=== PATIENT | female | born 1975 | race Caucasian/White ===

== ENCOUNTER 2016-11-13 23:07 | Observation (INO) ==
--- NOTE | 2016-11-13 23:29 | Emergency Department Note ---
START Narrative - START START: I examined this patient and my medical decision-making was reviewed with the SURVEY RESEARCH TEACHER/PA/Advanced Practice Nurse/Resident Physician. I agree with the documented findings, disposition and treatment plan as described except to the extent set forth below. ED attending note: Patient seen with emergency medicine resident . Please see a copy of his note for details of the H&P, evaluation, management and disposition of this patient. We independently had [id number] contact with the patient Briefly: A 41-year-old female presents in wheelchair comfortably by family members very tearful. Patient is apparently having a grief reaction after finding out that her had been "cheating with her best friend". She had several episodes of "passing out" for crying so much. History of type 2 diabetes but no prior mental health problems. No voiced concerns or expressions of SI or HI. Patient will undergo medical clearance we will get parenteral benzodiazepines observation. Possibly mental health consultation. Disposition pending
--- NOTE | 2016-11-13 23:36 | Emergency Department Note ---
Disposition Clinical Impression: Acute anxiety, Grief reaction Disposition: Admitted As Inpatient Condition: Good Referrals: NO,PCP [Primary Care Provider] - Forms: ED Satisfaction Letter Time of Disposition: 02:15 Psych HPI - General Chief Complaint: ED Psychiatric Symptoms Stated Complaint: psych Time Seen by Provider: 11/13/16 23:23 Source: patient, family Mode of arrival: wheelchair Limitations: other (Anxiety) Nursing Notes Reviewed: Yes Vital Signs Reviewed: Yes - History of Present Illness HPI Narrative: Patient presents to the ED with an apparent acute grief reaction. Patient arrived to the ED and was brought back via wheelchair. Patient was sobbing and in apparent distress. Patient had 3 family members with her. They state that the patient just found out that her has been cheating on her. She has been having "an anxiety attack." All day. States that she has been hyperventilating and has passed out from this earlier today. They deny any suicidal or homicidal ideation. There is no previous history of bipolar disorder, schizophrenia or depression. She does have a history of anxiety, but is not on any medication daily. They present now because just prior to arrival. The patient found out that the person her was cheating on her. 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 They also state that she has a daughter that has cerebral palsy and is difficult for her to take care of. She also has a son that is deployed and she is concerned for him area. She has not had any auditory or visual hallucinations, although she has been repeating a recent phone conversation with her son. Family states that she looks like she is broken. They report that she has a history of diabetes and takes pills for this. - Related Data Home Medications Medication Instructions Recorded Confirmed Canagliflozin [Invokana] 300 mg PO DAILY 04/05/15 04/05/15 Duloxetine [Cymbalta] 30 mg PO HS 04/05/15 04/05/15 Estradiol [Vivelle-Dot] 1 each TD 2XW 04/05/15 04/05/15 Estrogens, Conjugated [Premarin 0.5 mg VG 2XW 04/05/15 04/05/15 Cream] Naproxen Sodium [Naproxen Sodium 220 mg PO DAILY PRN 04/05/15 04/05/15 Cr] Oxybutynin [Ditropan] 10 mg PO HS 04/05/15 04/05/15 SitaGLIPtin [Januvia] 100 mg PO HS 04/05/15 04/05/15 Previous Rx's Medication Instructions Recorded OxyCODONE Immed Rel [Roxicodone 5 5 - 10 mg PO Q6HR PRN #40 tablet 04/03/15 MG] Allergies Allergy/AdvReac Type Severity Reaction Status Date / Time metformin [From Glucophage] AdvReac Vomiting Verified 04/06/15 06:56 Constitutional: Denies: fever Cardiovascular: Denies: chest pain Gastrointestinal: Denies: abdominal pain, vomiting Psychiatric: Reports: anxiety Past Medical History - Past Medical History Attestation: Yes The following information was validated with the patient. Source: old records reviewed Medical history: Reports: diabetes Psychiatric history: Reports: anxiety, depression - Social History Smoking Status: Never smoker Smokeless Tobacco Status: No Alcohol use: Reports: none Drug use: Reports: none Physical Exam - General Limitations: no limitations General appearance: alert, anxious (Tearful, sobbing, inconsolable) - Head Head exam: atraumatic, normocephalic, normal inspection - Eye Eye exam: Present: normal appearance, PERRL - ENT ENT exam: normal exam, normal oropharynx, mucous membranes moist - Neck Neck exam: Present: normal inspection, full ROM, trachea midline - Chest Chest inspection: Present: normal inspection, symmetric chest wall rise - Respiratory Respiratory exam: Present: normal lung sounds bilaterally, respiratory distress (From hyperventilation) - Cardiovascular Cardiovascular exam: Present: tachycardia - Abdominal Exam Abdominal exam: Present: soft, Non-Tender - Extremities Exam Extremities exam: Present: normal inspection, full ROM. Absent: pedal edema - Neurological Exam Neurological exam: Present: alert, oriented X3 - Psychiatric Psychiatric exam: Present: anxious - Skin Skin exam: Present: warm, dry, intact, normal color Course - Reevaluation(s) Reevaluation #1: Patient reevaluated. She is much more calm now. Her respiratory rate has slowed to a normal rate. She is able to communicate with nursing staff. Workup is initiated. We will give benzos as needed. Time: 23:47 Reevaluation #2: Patient medically cleared for psychiatric evaluation. Patient was requesting STD screening. However, is not having any dysuria, vaginal discharge or abdominal pain. After discussion with patient and the family. She was more amenable to following up with her GLAZE SUPERVISOR, Dr. Márquez for this testing as an outpatient. We did feel that psychiatric evaluation would be warranted since the patient does not feel like she can go home due to her house being a major trigger for her. Family would like this as well. She still denies any suicidal ideation but states that she really needs to get some things worked out. Time: 00:29 Reevaluation #3: Patient to be admitted to the psychiatry service for observation. Time: 02:14 Vital Signs Temperature 98.1 F 11/13/16 23:11 Pulse Rate 97 11/13/16 23:11 Respiratory Rate 18 11/13/16 23:11 Blood Pressure 146/102 11/13/16 23:11 O2 Sat by Pulse Oximetry 96 11/13/16 23:11 Temperature 98.1 F 11/13/16 23:11 Pulse Rate 97 11/13/16 23:11 Respiratory Rate 18 11/13/16 23:11 Blood Pressure 146/102 11/13/16 23:11 O2 Sat by Pulse Oximetry 96 11/13/16 23:11 Oxygen Delivery Oxygen Delivery Room Air Psych - Lab Data Result diagrams: 11/13/16 23:31 11/13/16 23:31 Lab Results 11/13/16 11/13/16 11/13/16 Range/Units 23:31 23:31 23:31 WBC 8.5 (4.3-11.1) K/mcL RBC 5.45 H (3.82-4.97) M/mcL Hgb 15.8 H (11.5-15.4) g/dL Hct 44.3 (35.3-44.9) % MCV 81.3 L (83.0-100.0) fL MCH 29.0 (28.0-33.3) pg MCHC 35.7 H (31.6-35.5) g/dL RDW 12.1 (11.5-14.5) % Plt Count 264 (140-400) K/mcL MPV 10.3 (9.4-12.4) fL Immature Gran % 0.2 (0-4) % Seg Neutrophils % 52.5 % Lymphocytes % 36.0 % Monocytes % 9.7 % Eosinophils % 1.2 % Basophils % 0.4 % Neutrophils # 4.5 (1.6-8.9) K/mcL Lymphocytes # 3.1 (0.6-4.6) K/mcL Monocytes # 0.8 (0.0-1.3) K/mcL Eosinophils # 0.1 (0.0-0.6) K/mcL Basophils # 0.0 (0.0-0.2) K/mcL Sodium 140 (136-145) mEq/L Potassium 3.5 (3.5-4.5) mEq/L Chloride 108 (98-109) mEq/L Carbon Dioxide 17 L (19-29) mEq/L BUN 12 (7-20) mg/dL Creatinine 0.77 (0.57-1.11) mg/dL Est GFR ( Amer) > 60 (> 60) Est GFR (Non-Af Amer) > 60 (> 60) BUN/Creatinine Ratio 16 (6-26) Glucose 160 H (70-99) mg/dL Calculated Osmolality 293 (280-300) Calcium 9.4 (8.6-10.8) mg/dL Serum , Qual Negative (Negative) Urine Color (Yellow) Urine Clarity (Clear) Urine pH (5.0-8.0) pH Units Ur Specific [place] (1.010-1.025) Urine Protein (Neg-Trace) mg/dL Urine Glucose (UA) (Normal) mg/dL Urine Ketones (Negative) mg/dL Urine Blood (Negative) Urine Nitrite (Negative) Urine Bilirubin (Negative) Urine Urobilinogen (Normal) mg/dL Ur Leukocyte Esterase (Negative) Salicylates < 5.0 L (15-30) mg/dL Urine Opiates Screen (Gwvtaz=283) ng/mL Acetaminophen < 1.0 L (10-30) mcg/mL Ur Barbiturates Screen (Flwrnv=813) ng/mL Ur Phencyclidine Scrn (Cutoff=25) ng/mL Ur Amphetamines Screen (Uhnuph=8222) ng/mL U Benzodiazepines Scrn (Izplvk=685) ng/mL Urine Cocaine Screen (Cutoff= 300) ng/mL U Marijuana (THC) Screen (Cutoff = 50) ng/mL Ethyl Alcohol < 10 (0-10) mg/dL 11/14/16 11/14/16 Range/Units 00:25 00:25 WBC (4.3-11.1) K/mcL RBC (3.82-4.97) M/mcL Hgb (11.5-15.4) g/dL Hct (35.3-44.9) % MCV (83.0-100.0) fL MCH (28.0-33.3) pg MCHC (31.6-35.5) g/dL RDW (11.5-14.5) % Plt Count (140-400) K/mcL MPV (9.4-12.4) fL Immature Gran % (0-4) % Seg Neutrophils % % Lymphocytes % % Monocytes % % Eosinophils % % Basophils % % Neutrophils # (1.6-8.9) K/mcL Lymphocytes # (0.6-4.6) K/mcL Monocytes # (0.0-1.3) K/mcL Eosinophils # (0.0-0.6) K/mcL Basophils # (0.0-0.2) K/mcL Sodium (136-145) mEq/L Potassium (3.5-4.5) mEq/L Chloride (98-109) mEq/L Carbon Dioxide (19-29) mEq/L BUN (7-20) mg/dL Creatinine (0.57-1.11) mg/dL Est GFR ( Amer) (> 60) Est GFR (Non-Af Amer) (> 60) BUN/Creatinine Ratio (6-26) Glucose (70-99) mg/dL Calculated Osmolality (280-300) Calcium (8.6-10.8) mg/dL Serum , Qual (Negative) Urine Color Yellow (Yellow) Urine Clarity Clear (Clear) Urine pH 5.5 (5.0-8.0) pH Units Ur Specific [place] > 1.030 H (1.010-1.025) Urine Protein Negative (Neg-Trace) mg/dL Urine Glucose (UA) >=1000 H (Normal) mg/dL Urine Ketones 80 H (Negative) mg/dL Urine Blood Negative (Negative) Urine Nitrite Negative (Negative) Urine Bilirubin Negative (Negative) Urine Urobilinogen Normal (Normal) mg/dL Ur Leukocyte Esterase Negative (Negative) Salicylates (15-30) mg/dL Urine Opiates Screen Negative (Kqzxen=972) ng/mL Acetaminophen (10-30) mcg/mL Ur Barbiturates Screen Negative (Yqgebm=003) ng/mL Ur Phencyclidine Scrn Negative (Cutoff=25) ng/mL Ur Amphetamines Screen Negative (Wrebvt=8532) ng/mL U Benzodiazepines Scrn Negative (Wdfdac=395) ng/mL Urine Cocaine Screen Negative (Cutoff= 300) ng/mL U Marijuana (THC) Screen Negative (Cutoff = 50) ng/mL Ethyl Alcohol (0-10) mg/dL Psychiatric Medical Clearance - Medical Clearance Checklist Medical History: No Social History Section defined Current Vitals: Last Vital Signs Temp 98.1 F 11/13/16 23:11 Pulse 97 11/13/16 23:11 Resp 18 11/13/16 23:11 BP 146/102 11/13/16 23:11 Pulse Ox 96 11/13/16 23:11 Psychiatric Lab Panel: Drug Levels and Toxicity 11/13/16 11/14/16 23:31 00:25 Urine Opiates Screen Negative Acetaminophen < 1.0 L Ur Barbiturates Screen Negative Ur Phencyclidine Scrn Negative Ur Amphetamines Screen Negative U Benzodiazepines Scrn Negative Urine Cocaine Screen Negative U Marijuana (THC) Screen Negative Ethyl Alcohol < 10 Abnormal Labs: Abnormal lab results RBC 5.45 M/mcL (3.82-4.97) H 11/13/16 23:31 Hgb 15.8 g/dL (11.5-15.4) H 11/13/16 23:31 MCV 81.3 fL (83.0-100.0) L 11/13/16 23:31 MCHC 35.7 g/dL (31.6-35.5) H 11/13/16 23:31 Carbon Dioxide 17 mEq/L (19-29) L 11/13/16 23:31 Glucose 160 mg/dL (70-99) H 11/13/16 23:31 Ur Specific [place] > 1.030 (1.010-1.025) H 11/14/16 00:25 Urine Glucose (UA) >=1000 mg/dL (Normal) H 11/14/16 00:25 Urine Ketones 80 mg/dL (Negative) H 11/14/16 00:25 Salicylates < 5.0 mg/dL (15-30) L 11/13/16 23:31 Acetaminophen < 1.0 mcg/mL (10-30) L 11/13/16 23:31 Statement of Medical Clearance: I have evaluated the patient, reviewed diagnostic information, and certify that the patient's medical condition is sufficiently stable that transfer to the psychiatric unit does not pose a significant risk of deterioration.
[2016-11-13 23:37] LABS: Basophils % 0.4 %; Eosinophils # 0.1 K/mcL (0.0-0.6); Eosinophils % 1.2 %; Hematocrit 44.3 % (35.3-44.9); Hemoglobin 15.8 g/dL (11.5-15.4); Immature Granulocytes % 0.2 % (0-4); Lymphocytes # 3.1 K/mcL (0.6-4.6); Mean Corpuscular HGB Conc 35.7 g/dL (31.6-35.5); Mean Corpuscular Volume 81.3 fL (83.0-100.0); Mean Platelet Volume 10.3 fL (9.4-12.4); Monocytes # 0.8 K/mcL (0.0-1.3); Monocytes % 9.7 %; Neutrophils # 4.5 K/mcL (1.6-8.9); Platelet Count 264 K/mcL (140-400); Red Blood Count 5.45 M/mcL (3.82-4.97); Red Cell Distribution Width 12.1 % (11.5-14.5); Segmented Neutrophils % 52.5 %
[2016-11-13 23:50] LABS: BUN/Creatinine Ratio 16 (6-26); Blood Urea Nitrogen 12 mg/dL (7-20); Calcium 9.4 mg/dL (8.6-10.8); Carbon Dioxide 17 mEq/L (19-29); Chloride 108 mEq/L (98-109); Glucose 160 mg/dL (70-99); Osmolality,Calculated 293 (280-300); Potassium 3.5 mEq/L (3.5-4.5); Sodium 140 mEq/L (136-145); eGFR For African Americans > 60 (> 60); eGFR For Non-African Americans > 60 (> 60)
[2016-11-14 00:03] LABS: Acetaminophen < 1.0 mcg/mL (10-30); Ethanol < 10 mg/dL (0-10); Salicylate < 5.0 mg/dL (15-30)
[2016-11-14 00:34] LABS: Bilirubin,Urine Negative (Negative); Blood,Urine Negative (Negative); Clarity,Urine Clear (Clear); Color,Urine Yellow (Yellow); Glucose,Urine (UA) >=1000 mg/dL (Normal); Ketones,Urine 80 mg/dL (Negative); Leukocyte Esterase,Urine Negative (Negative); Nitrite,Urine Negative (Negative); PH,Urine 5.5 pH Units (5.0-8.0); Protein,Urine Negative (Neg-Trace); Specific Gravity,Urine > 1.030 (1.010-1.025); Urobilinogen,Urine Normal (Normal)
[2016-11-14 00:40] LABS: Amphetamine Screen,Urine Negative ng/mL (Cutoff=1000); Barbiturate Screen,Urine Negative ng/mL (Cutoff=200); Benzodiazepines Screen,Urine Negative ng/mL (Cutoff=200); Cannabinoid Screen,Urine Negative ng/mL (Cutoff = 50); Cocaine Screen,Urine Negative ng/mL (Cutoff= 300); Opiate Screen,Urine Negative ng/mL (Cutoff=300); Phencyclidine Screen,Urine Negative ng/mL (Cutoff=25)
[2016-11-14] MEDS ORDERED: traZODone 50 MG TABLET PO PRN (02:40)
[2016-11-14] MEDS ORDERED: *HR* LORazepam 1 MG TABLET PO PRN (02:40)
[2016-11-14] MEDS ORDERED: hydrOXYzine pamoate 25 MG CAPSULE PO PRN (02:40)
[2016-11-14] MEDS ORDERED: Ibuprofen 400 MG TABLET PO PRN (02:40)
[2016-11-14] MEDS ORDERED: MOM Conc 10 ML UD.LIQ PO PRN (02:40)
[2016-11-14] MEDS ORDERED: Mag Hydrox/Al Hydrox/Simeth 30 ML UDC PO PRN (02:40)
[2016-11-14] MEDS ORDERED: Haloperidol Lactate 5 MG/ML VIAL IM PRN (02:40)
[2016-11-14] MEDS ORDERED: *HR* LORazepam 2 MG/ML VIAL IM PRN (02:40)
[2016-11-14] MEDS ORDERED: *HR* OxyCODONE Immed Rel 5 MG TABLET PO PRN (02:41)
[2016-11-14 09:42] VITALS: BP 138/79
--- NOTE | 2016-11-14 11:31 | Discharge Summary ---
Date of Encounter: 11/14/16 Time of Encounter: 10:00 History of Present Illness Chief complaint: "I am so overwhelemed." Admitted From: Emergency Dept History of Present Illness: Ms. Bennett is a 41 year old female with a history of back pain but no significant psychiatric history who presents today after being admitted under observation for severe emotional distress feelings of "not wanting to be here." Patient recently found out that her is cheating on her with a home health aide who helps care for her daughter. Her daughter is 16 and has a incurable illness that will lead to her and they recently signed a DNR for her. Patient is also worried about her son who was recently [place] with the . Her main sources of emotional support are her parents and her [id number] and grandchild. She states that she is still in shock about her because they were not really having many marital problems to her understanding. recently told her that she did not put him first and he did not have sex often enough. Patient feels very betrayed diet 's actions but is also worried about herself financially she is going to seek out a large figure out what her financial obligations. Patient denies suicidal ideations today. She does feel very emotional and overwhelmed but she is more hopeful. "I just could not keep myself together." Patient denies a history of psychotic or manic symptoms. Past Med Surg Social Fam HX - Past Medical History Medical history: diabetes - Past Psychiatric History Psychiatric history: Reports: no psych history Family psychiatric history: No Family History of Suicide: None - Social History Smoking Status: Never smoker Smokeless Tobacco Status: No Alcohol use: none Drug use: none Occupational status: employed Current living situation: Home - Independent Activity Level: Independent ambulation Medications - Discharge Medications Prescriptions: hydrOXYzine pamoate [HydrOXYzine Pamoate] 50 mg PO BID PRN #60 capsule PRN Reason: Anxiety traZODone [TraZODone] 50 mg PO HS PRN #30 tablet PRN Reason: Insomnia Canagliflozin [Invokana] 300 mg PO DAILY 04/05/15 [History] Duloxetine [Cymbalta] 30 mg PO HS 04/05/15 [History] SitaGLIPtin [Januvia] 100 mg PO HS 04/05/15 [History] Estradiol [Hazle] 0.05 mg TD 2XW 11/14/16 [History] Oxybutynin Chloride [Ditropan Xl] 10 mg PO HS 11/14/16 [History] hydrOXYzine pamoate [HydrOXYzine Pamoate] 50 mg PO BID PRN #60 capsule 11/14/16 [Rx] traZODone [TraZODone] 50 mg PO HS PRN #30 tablet 11/14/16 [Rx] Allergies metformin [From Glucophage] Adverse Reaction (Verified 04/06/15 06:56) Vomiting Review of Systems Constitutional: Denies: fever, chills, weakness, weight change Eyes: Denies: eye pain, vision change Ears, Nose, Throat: Denies: ear pain, throat pain, dental pain, hearing loss, congestion Cardiovascular: Denies: chest pain, palpitations, dyspnea on exertion Respiratory: Denies: cough, dyspnea, wheezes Gastrointestinal: Denies: abdominal pain, nausea, vomiting, diarrhea, constipation Genitourinary male: Denies: urgency, dysuria, frequency, genital lesions Genitourinary female: Denies: urgency, dysuria, frequency, abnormal menses, dyspareunia Musculoskeletal: Denies: joint swelling, joint pain Integumentary: Denies: rash, lesions, pruritus Neurological: Denies: headache, weakness, numbness, memory loss Psychiatric: Reports: depression, anxiety, abnormal sleep pattern, change in appetite, difficulty concentrating, irritability. Denies: suicidal ideation Endocrine: Denies: fatigue, heat or cold intolerance Hematologic/Lymphatic: Denies: easy bruising, lymphadenopathy Allergic/Immunologic: Denies: urticaria, itchy eyes Mental Status Exam - Mental Status Exam Patient orientation: Yes Person, Yes Time, Yes Place Level of alertness: Alert Patient appearance: Appropriate Behavior: tearful Psychomotor activity: Normal Eye contact: Maintains Eye Contact Mood description: Anxious Patient description of mood: "I feel so overwhelmed." Affect description: congruent with mood Speech pattern: Normal rate, Normal rhythm, Normal tone Speech Volume: Normal Thought process: Intact, Goal Oriented Thought Content: Yes Intact, No Suicidal ideation, No Homicidal ideation Perceptual Disturbances: No Auditory hallucinations, No Visual hallucinations Judgment: Fair Insight: Partial Results - Vital Signs Vital signs: Temp Pulse Resp BP Pulse Ox 97.8 F 72 16 138/79 96 11/14/16 09:00 11/14/16 09:00 11/14/16 09:00 11/14/16 09:00 11/13/16 23:11 - Labs Labs: Laboratory Last Values WBC 8.5 K/mcL (4.3-11.1) 11/13/16 23:31 RBC 5.45 M/mcL (3.82-4.97) H 11/13/16 23:31 Hgb 15.8 g/dL (11.5-15.4) H 11/13/16 23:31 Hct 44.3 % (35.3-44.9) 11/13/16 23: MCV 81.3 fL (83.0-100.0) L 11/13/16 23: MCH 29.0 pg (28.0-33.3) 11/13/16 23: MCHC 35.7 g/dL (31.6-35.5) H 11/13/16 23:31 RDW 12.1 % (11.5-14.5) 11/13/16 23:31 Plt Count 264 K/mcL (140-400) 11/13/16 23:31 MPV 10.3 fL (9.4-12.4) 11/13/16 23:31 Immature Gran % 0.2 % (0-4) 11/13/16 23: Seg Neutrophils % 52.5 % 11/13/16 23: Lymphocytes % 36.0 % 11/13/16 23:31 Monocytes % 9.7 % 11/13/16 23: Eosinophils % 1.2 % 11/13/16 23: Basophils % 0.4 % 11/13/16 23: Neutrophils # 4.5 K/mcL (1.6-8.9) 11/13/16 23:31 Lymphocytes # 3.1 K/mcL (0.6-4.6) 11/13/16 23: Monocytes # 0.8 K/mcL (0.0-1.3) 11/13/16 23: Eosinophils # 0.1 K/mcL (0.0-0.6) 11/13/16 23:31 Basophils # 0.0 K/mcL (0.0-0.2) 11/13/16 23:31 Sodium 140 mEq/L (136-145) 11/13/16 23:31 Potassium 3.5 mEq/L (3.5-4.5) 11/13/16 23:31 Chloride 108 mEq/L (98-109) 11/13/16 23:31 Carbon Dioxide 17 mEq/L (19-29) L 11/13/16 23:31 BUN 12 mg/dL (7-20) 11/13/16 23:31 Creatinine 0.77 mg/dL (0.57-1.11) 11/13/16 23:31 Est GFR ( Amer) > 60 (> 60) 11/13/16 23:31 Est GFR (Non-Af Amer) > 60 (> 60) 11/13/16 23:31 BUN/Creatinine Ratio 16 (6-26) 11/13/16 23:31 Glucose 160 mg/dL (70-99) H 11/13/16 23:31 POC Glucose 109 (58-89) H 11/14/16 07:15 Calculated Osmolality 293 (280-300) 11/13/16 23:31 Calcium 9.4 mg/dL (8.6-10.8) 11/13/16 23:31 Serum , Qual Negative (Negative) 11/13/16 23:31 Urine Color Yellow (Yellow) 11/14/16 00:25 Urine Clarity Clear (Clear) 11/14/16 00:25 Urine pH 5.5 pH Units (5.0-8.0) 11/14/16 00:25 Ur Specific [place] > 1.030 (1.010-1.025) H 11/14/16 00:25 Urine Protein Negative mg/dL (Neg-Trace) 11/14/16 00:25 Urine Glucose (UA) >=1000 mg/dL (Normal) H 11/14/16 00:25 Urine Ketones 80 mg/dL (Negative) H 11/14/16 00:25 Urine Blood Negative (Negative) 11/14/16 00:25 Urine Nitrite Negative (Negative) 11/14/16 00:25 Urine Bilirubin Negative (Negative) 11/14/16 00:25 Urine Urobilinogen Normal mg/dL (Normal) 11/14/16 00:25 Ur Leukocyte Esterase Negative (Negative) 11/14/16 00:25 Salicylates < 5.0 mg/dL (15-30) L 11/13/16 23:31 Urine Opiates Screen Negative ng/mL (Dgcsvw=192) 11/14/16 00:25 Acetaminophen < 1.0 mcg/mL (10-30) L 11/13/16 23:31 Ur Barbiturates Screen Negative ng/mL (Fwzpul=099) 11/14/16 00:25 Ur Phencyclidine Scrn Negative ng/mL (Cutoff=25) 11/14/16 00:25 Ur Amphetamines Screen Negative ng/mL (Xczgdy=5699) 11/14/16 00:25 U Benzodiazepines Scrn Negative ng/mL (Ihtlig=914) 11/14/16 00:25 Urine Cocaine Screen Negative ng/mL (Cutoff= 300) 11/14/16 00:25 U Marijuana (THC) Screen Negative ng/mL (Cutoff = 50) 11/14/16 00:25 Ethyl Alcohol < 10 mg/dL (0-10) 11/13/16 23:31 Diagnosis - Discharge Diagnosis (1) Adjustment disorder with disturbance of emotion Status: Acute (2) Acute anxiety Status: Acute Assessment and Plan - Patient/Caregiver Discharge Instructions Activity: resume usual activities as tolerated Diet: regular diet Additional Instructions: Patient will be given follow-up appointments at the counseling center for therapist and medication management. - Follow up Plan Follow up with: NO,PCP [Primary Care Provider] - Functional capacity at discharge: independent ambulation Overall status at discharge: Stable Disposition: Home, Self-Care Provider Date of admission: 11/14/16 02:21 Primary care physician: MONA CHAN Discharging clinician: [facility] Course Hospital course: Ms. Bennett is a 41 year old female admitted to for psychiatric stabilization. She was incorporated into the therapeutic milieu group and individual as well as recreational therapy. She was also offered psychoeducational materials and supportive therapy. She was placed on suicide precautions and close observation per unit protocol. Patient was initially reporting feelings of being very overwhelmed with a passive wish of no longer wanting to be here. However, she was admitted overnight under observation for this and reports that this morning she is starting to feel more hopeful. She does have a lot of friends and family that are very supportive for her. She does not want to but she just feels upset about a lot of recent stressors in her life. She is willing to go to counseling. She was offered trazodone for sleep and hydroxyzine for anxiety symptoms. She would not like to start any more medications at this time. Patient will be staying with her daughter-in -law and taking tomorrow off work. She does have plans to speak to a bicycle assembler next Sunday regarding her marriage. At this point she is future oriented. Denying suicidal or homicidal ideation, intent, or plan. She denies guns or weapons in the home. Staff will be confirming discharge plans with daughter-in- law. She is discharged in stable condition. - Time Spent with Patient Total time spent providing and/or coordinating discharge services: Procedures - Procedures Procedures: Medication Management, Crisis Stabilization, Supportive Therapy, Group Therapy, Psychoeducational Therapy Quality - Multiple Antipsychotics Patient discharged on 2 or more antipsychotic medications: No
[2016-11-14] MEDS ORDERED: *HR* SitaGLIPtin 100 MG TABLET PO SCH (21:00)
[2016-11-16] MEDS ORDERED: ESTRADIOL TP SCH (09:00)
[2016-11-16] MEDS ORDERED: Estrogens, Conjugated CREAM 30 GM TUBE VG SCH (09:00)
== END 2016-11-14 14:35 | disposition home or self-care (01) ==
LOC: EMEROO 23:07 → 1ANU 23:07
PROVIDERS: ADMIT Student in an Organized Health Care Education/Training Program; ATTEND Student in an Organized Health Care Education/Training Program